=== PATIENT | male | born 1990 | race Caucasian/White ===

== ENCOUNTER 2018-08-31 17:29 | Emergency (ER) | payer OTHER ==
[~2018-08-31] VITALS: Ht 193 cm; Wt 86.2 kg
[2018-08-31 17:38] VITALS: BP 156/106
[2018-08-31] MEDS ORDERED: DOL10 PO (17:50)
--- NOTE | 2018-08-31 17:50 | NUR ---
PT BIB [place] [facility] S/P TO BE CLEARED FOR MRSA ON BL LOWER EXTREMITY - [place] GREATER ON THE RT. DENIES PAIN. TAKING METHADONE. NO BLEEDING NOTED. PAIN 0/10, BILAT SMALL WOUNDS NOTED ON BOTH LOWER LEG. PT DENIES N/V/D; AAOX4, PERRL, WITH EVEN AND STEADY GAIT; LUNGS CLEAR BL, BREATHING UNLABORED; HR EVEN AND REGULAR, BL PERIPHERAL PULSES PRESENT; BS ACTIVE X4, NO TENDERNESS TO PALPATION. PT DENIES ANY FEVER, CP, SOB, OR COUGH AT THIS TIME; PT STATES 0/10 PAIN AT THIS TIME; VSS; PATIENT POSITIONED FOR COMFORT; HOB ELEVATED; BEDRAILS UP X2; BED DOWN.
[2018-08-31] MEDS ORDERED: CLINDAMYCIN 600 MG/4 ML VIAL IM ONE (18:10)
[2018-08-31] MEDS ORDERED: SULFAMETH/TRIMETH DS 800/160MG 1 TAB PO ONE (18:10)
[2018-08-31 18:51] VITALS: BP 156/106
--- NOTE | 2018-08-31 18:51 | NUR ---
PATIENT BIB [facility] [employer]. PATIENT EXAMINED BY DR. THOMPSON. PATIENT MEDICALLY CLEARED AND RELEASED IN CUSTODY IN STABLE CONDITION. ORIGINAL PRE-BOOK FORM GIVEN TO OFFICER Abraham MATOS. PRESCRIBED WITH BACTRIM AND DOXYCYCLINE. MEDICATION EXPLAINED WITH ADVERSED REACTION AND INSTRUCTED TO FOLLOW UP WITH PMD.
== END 2018-08-31 18:58 ==
LOC: MED 17:29
DX: L01.02 Bockhart's impetigo (principal); Z79.891 Long term (current) use of opiate analgesic; Z86.14 Personal history of Methicillin resistant Staphylococcus aureus infection; Z86.19 Personal history of other infectious and parasitic diseases
CPT/HCPCS: 96372; 99283; J3490

== ENCOUNTER 2020-11-03 17:34 | Emergency (ER) | payer OTHER ==
[~2020-11-03] VITALS: Ht 193 cm; Wt 90.7 kg
[~2020-11-03 17:34] MED LIST: DOL10 PO
[2020-11-03 17:38] VITALS: BP 107/74
--- NOTE | 2020-11-03 17:39 | NUR ---
Patient to bed 9. RN evaluating the patient at bedside.
--- NOTE | 2020-11-03 17:49 | NUR ---
Dr. Araujo is evaluating the patient at bedside.
[2020-11-03] MEDS ORDERED: VANCOMYCIN 1,000 MG in DEXTROSE 5% 250 ML IV ONE (17:55)
[2020-11-03] MEDS ORDERED: PIPERACILLIN/TAZOBACTAM 3.375 GM in DEXTROSE 5% 50 ML IV ONE (17:55)
[2020-11-03] MEDS ORDERED: NACL 0.9% 2,500 ML IV ONE (17:55)
[2020-11-03] MEDS ORDERED: CLINDAMYCIN 900 MG in DEXTROSE 5% 100 ML IV ONE (17:55)
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
[2020-11-03] MEDS ORDERED: PIPERACILLIN/TAZOBACTAM 3.375 GM VIAL IV ONE ×2 (18:35→20:07)
[2020-11-03] MEDS ORDERED: MORPHINE SULFATE 4 MG/ML SYR IVP ONE (19:20)
[2020-11-03] MEDS ORDERED: ONDANSETRON 4 MG/2 ML VIAL IVP ONE (19:20)
[2020-11-03 19:38] LABS: BASOPHILS % (AUTO) 0.3 % (0.0-2.0); EOSINOPHILS # (AUTO) 0.1 K/uL (0-0.4); HEMOGLOBIN 11.4 g/dL (12.0-18.0); LYMPHOCYTES # (AUTO) 2.7 K/uL (2.0-11.5); LYMPHOCYTES % (AUTO) 18.4 % (20.5-51.1); MEAN CORPUSCULAR HEMOGLOBIN 28 pg (27-31); MEAN CORPUSCULAR HGB CONC 34 g/dL (33-37); MEAN CORPUSCULAR VOLUME 83.7 fL (80-94); MONOCYTES # (AUTO) 0.8 K/uL (0.8-1.0); MONOCYTES % (AUTO) 5.5 % (1.7-9.3); NEUTROPHILS # (AUTO) 10.9 K/uL (1.8-7.7); NEUTROPHILS % (AUTO) 74.8 % (42.2-75.2); PLATELET COUNT (AUTO) 243 K/uL (140-450); RED BLOOD CELL COUNT(AUTO) 4.07 MIL/uL (4.20-6.10); RED CELL DISTRIBUTION WIDTH 14.1 % (11.6-13.7); WHITE BLOOD COUNT (AUTO) 14.5 K/uL (4.8-10.8)
[2020-11-03 19:54] LABS: ALBUMIN 3.1 g/dL (3.4-5.0); ANION GAP 11.7 (8-16); CARBON DIOXIDE 27.8 mmol/L (21-32); CREATININE 0.7 mg/dL (0.6-1.3); POTASSIUM 3.5 mmol/L (3.5-5.1)
[2020-11-03 20:08] LABS: PROTHROMBIN TIME 10.8 secs (10.8-13.4)
--- NOTE | 2020-11-03 20:29 | NUR ---
[facility] ([facility])- [phone] REQUESTING UPDATE. WILL NOTIFY PRIMARY RN
--- NOTE | 2020-11-03 20:55 | NUR ---
PT TAKEN TO CT VIA W/C
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
[2020-11-03] MEDS ORDERED: cefTRIAXone 1,000 MG in LIDOCAINE MPF 1% 2.1 ML IM ONE (21:30)
[2020-11-03] MEDS ORDERED: cefTRIAXone 1,000 MG VIAL ONE (21:31)
[2020-11-03] MEDS ORDERED: LIDOCAINE MPF 1% 5 ML ONE (21:31)
[2020-11-03] MEDS ORDERED: SULF-59 PO (21:33)
[2020-11-03] MEDS ORDERED: AMOX-1000 PO (21:33)
[2020-11-03] MEDS ORDERED: ACET-2619 PO (21:34)
[2020-11-03 22:01] VITALS: BP 120/74
--- NOTE | 2020-11-03 22:01 | NUR ---
Patient does not wish to proceed with medical care recommended by MD SAID. Patient given information related to possible complications, up to and including , which could occur as a result of leaving hospital at this time. Patient verbalizes understanding of risks involved leaving against medical advice. Patient has REFUSED TO sign AMA form.
--- NOTE | 2020-11-04 20:23 | NUR ---
LATE ENTRY- 0.9% NS BOLUS DISCONTINUED AT 2200 AND ZOSYN IVPB DISCONTINUED AT 2039
== END 2020-11-04 00:56 | disposition left against medical advice (07) ==
LOC: MED 17:34
DX: L02.512 Cutaneous abscess of left hand (principal); M65.849 Other synovitis and tenosynovitis, unspecified hand; D72.829 Elevated white blood cell count, unspecified; D64.9 Anemia, unspecified; R79.82 Elevated C-reactive protein (CRP)
CPT/HCPCS: 36415; 73200; 80053; 83605; 83690; 85025; 85610; 85651; 85730; 86140; 87040; 96361; 96365; 96367; 96375; 99291; J0696; J2001; J2270; J2405; J2543; J7030; J7060; 99284

== ENCOUNTER 2022-01-16 20:46 | Emergency (ER) | payer OTHER ==
[~2022-01-16] VITALS: Ht 193 cm; Wt 90.7 kg
[~2022-01-16 20:46] MED LIST changes: +ACET-2619 PO; +AMOX-1000 PO; -DOL10 PO; +METH-1550 PO; +SULF-59 PO
[2022-01-16 20:53] VITALS: BP 133/84
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
--- NOTE | 2022-01-16 21:05 | NUR ---
ERMD ASSESSING PT
--- NOTE | 2022-01-16 21:26 | NUR ---
PATIENT [facility]. PATIENT EXAMINED BY DR. DONG. PATIENT MEDICALLY CLEARED AND RELEASED IN CUSTODY IN STABLE CONDITION. ORIGINAL PRE-BOOK FORM GIVEN TO OFFICER [place]IV[place].
== END 2022-01-16 21:25 ==
LOC: MED 20:46
DX: Z02.89 Encounter for other administrative examinations (principal); V49.88XA Car occupant (driver) (passenger) injured in other specified transport accidents, initial encounter; Y93.89 Activity, other specified; Y92.89 Other specified places as the place of occurrence of the external cause; Y99.8 Other external cause status
CPT/HCPCS: 99283

== ENCOUNTER 2022-03-13 01:50 | Observation (INO) | payer OTHER ==
[~2022-03-13] VITALS: Ht 188 cm; Wt 86.2 kg
[2022-03-13 01:58] VITALS: BP 110/60
--- NOTE | 2022-03-13 02:05 | NUR ---
TO LOBBY FOLLOWING TRIAGE. IS DROWSY, ADMITS TO DRUG ADDICTION AND HAS TAKEN FENTANYL AND XANAX
--- NOTE | 2022-03-13 04:47 | NUR ---
PT TAKEN TO BED 11
--- NOTE | 2022-03-13 05:00 | NUR ---
PT BIB WC C/O RLE SWELLING X4 DAYS, +DIFFICULTY AMBULATING. DENIES RECENT IMMOBILIZATION, SURGERIES, LONG DISTANCE TRAVEL. +HX OF IV DRUG USE.
--- NOTE | 2022-03-13 05:07 | NUR ---
ULTRASOUND AT BEDSIDE
[2022-03-13 05:48] LABS: BASOPHILS % (AUTO) 0.2 % (0.0-2.0); EOSINOPHILS % (AUTO) 0.1 % (0.0-4.0); HEMATOCRIT 35.3 % (36-52); HEMOGLOBIN 11.6 g/dL (12.0-18.0); LYMPHOCYTES # (AUTO) 1.6 K/uL (2.0-11.5); LYMPHOCYTES % (AUTO) 12.3 % (20.5-51.1); MEAN CORPUSCULAR HEMOGLOBIN 27 pg (27-31); MEAN CORPUSCULAR HGB CONC 33 g/dL (33-37); MONOCYTES # (AUTO) 0.7 K/uL (0.8-1.0); MONOCYTES % (AUTO) 5.7 % (1.7-9.3); NEUTROPHILS # (AUTO) 10.4 K/uL (1.8-7.7); NEUTROPHILS % (AUTO) 81.7 % (42.2-75.2); PLATELET COUNT (AUTO) 169 K/uL (140-450); RED BLOOD CELL COUNT(AUTO) 4.25 MIL/uL (4.20-6.10); RED CELL DISTRIBUTION WIDTH 14.7 % (11.6-13.7); WHITE BLOOD COUNT (AUTO) 12.7 K/uL (4.8-10.8)
[2022-03-13 05:52] LABS: ALBUMIN 2.5 g/dL (3.4-5.0); ANION GAP 9.9 (8-16); CARBON DIOXIDE 29.9 mmol/L (21-32); CREATININE 0.8 mg/dL (0.6-1.3); PROTHROMBIN TIME 10.5 secs (10.8-13.4)
[2022-03-13 06:00] LABS: POTASSIUM 2.8 mmol/L (3.5-5.1)
[2022-03-13 06:10] LABS: SALICYLATE < 2.8 mg/dL (2.8-20.0)
--- NOTE | 2022-03-13 06:15 | NUR ---
Patient appears to be resting comfortably in bed. VSS. Respirations even and unlabored.
[2022-03-13] MEDS ORDERED: POTASSIUM CHLORIDE 10 MEQ TABER PO ONE (06:30)
[2022-03-13] MEDS ORDERED: POTASSIUM CHL 30 MEQ/ D5-1/2NS 1,000 ML IV ONE (06:50)
[2022-03-13] MEDS ORDERED: KCL 20 MEQ/WATER INJ PREMIX 200 ML IV ONE (07:00)
--- NOTE | 2022-03-13 07:06 | NUR ---
COVID SWAB SENT TO LAB
--- NOTE | 2022-03-13 07:16 | NUR ---
REPORT GIVEN TO EDWARDO YEE
[2022-03-13] MEDS ORDERED: ceFAZolin 1,000 MG VIAL ONE (07:31)
[2022-03-13] MEDS ORDERED: MAGNESIUM OXIDE 400 MG TAB PO PRN (08:15)
[2022-03-13] MEDS ORDERED: HYDROcodone/APAP 5/325 MG 1 TAB TAB PO PRN (08:15)
[2022-03-13] MEDS ORDERED: ACETAMINOPHEN 325 MG TAB PO PRN (08:15)
[2022-03-13] MEDS ORDERED: MAG SULF 2000 MG/WATER PREMIX 50 ML IV PRN (08:15)
[2022-03-13] MEDS ORDERED: MORPHINE SULFATE 4 MG/ML SYR IVP PRN (08:15)
[2022-03-13] MEDS ORDERED: VANCOMYCIN PER PHARMACY MC PRN (08:15)
[2022-03-13] MEDS ORDERED: KCL 20 MEQ/WATER INJ PREMIX 200 ML IV PRN (08:15)
[2022-03-13] MEDS ORDERED: POTASSIUM CHLORIDE 10 MEQ TABER PO PRN (08:15)
[2022-03-13] MEDS ORDERED: ONDANSETRON 4 MG/2 ML VIAL IVP PRN (08:15)
[2022-03-13] MEDS ORDERED: DOCUSATE SODIUM 100 MG GELCAP PO SCH (09:00)
[2022-03-13] MEDS ORDERED: cefTRIAXone 1,000 MG VIAL ONE (09:06)
--- NOTE | 2022-03-13 10:47 | NUR ---
DR CARUSO AT BEDSIDE
[2022-03-13] MEDS: VANCOMYCIN 1,000 MG in DEXTROSE 5% 250 ML IV SCH ×2 (11:00→19:00)
--- NOTE | 2022-03-13 11:00 | NUR ---
Patient will be admitted to care of DR CARUSO. Admited to TELEMETRY. Will go to room 124A. Belongings list completed. Report to samir reardon.
--- NOTE | 2022-03-13 11:29 | NUR ---
RECEIVE REPORT FROM ER NURSE WHILE PATIENT REST IN BED ASKING FOR IV BENZODIAZEPINES. PATIENT 32 YR-OLD MALE WHO COME TO ER FOR R. LOWER EXTREMITY SWELL AND PAIN FOR DAYS, DIAGNOSIS CELLULITIS W/ HX OF IV DRUG ABUSE/POLYSUBSTANCE ABUSE INCLUDING BUT NOT LIMIT ETOH, TOBACCO USE. NKA, FULL CODE, RISK FOR FALL, ALERT X 4 O TEL MONITOR, USING ROOM AIR, ON REGULAR DIET. PIV AT LAC INFUSING POTASSIUM D/T POTASSIUM 2.8 IN [facility] 7 LAB RESULT. MRSA SPECIMEN COLLECTED. WILL CONTINUE TO MONITOR
[2022-03-13 12:00] VITALS: BP 103/43
[2022-03-13 16:00] VITALS: BP 105/69
[2022-03-13] MEDS ORDERED: ECOTRIN 81 MG TABEC PO SCH (17:32)
--- NOTE | 2022-03-13 19:35 | NUR ---
1900 IV VANCOMYCIN IS NOT IN MEDICATION CABIN; NURSE CONTACT DR. CARUSO REGARDING TO PATIENT SELF REPORT THAT HE IS ALLERGY TO VANCOMYCIN FEELING ITCHY AFTER HAVE IV VANCOMYCIN. RECEIVE MD ORDER TO D/C VANCOMYCIN AND CONTINUE ROCEPHIN. ENCORE ORDER TO PM SHIFT NURSE
--- NOTE | 2022-03-13 19:36 | NUR ---
RECEIVED REPORT FROM DAY SHIFT NURSE ALEKSEY. PATIENT AWAKE AOX4 WILL CONTINUE TO MONITOR PT.WELL RESTED ON ROOM AIR. NO SOB NOTED. BREATHING EVEN UNLABORED. NO COMPLAINTS OF PAIN. SAFETY MEASURES IN PLACE. CALL LIGHT WITHIN REACH. IV ACCESS ON THE LAC 20 GAUGE SALINE LOCK.
[2022-03-13 20:00] VITALS: BP 100/49
--- NOTE | 2022-03-13 21:06 | NUR ---
ADMINISTERED SCHEDULED MEDICATION PER MD ORDER.
--- NOTE | 2022-03-13 23:10 | NUR ---
PATIENT DISCHARGED AMA PAPERS SIGNED. DR RADER TITLE LAWYER FOR DR CARUSO MADE AWARE. Addendum: 03/14/22 at 0056 by Lashon Rivera RN RN PATIENT SIGNED AMA.
== END 2022-03-13 23:10 | disposition left against medical advice (07) ==
LOC: MED 01:50 → MTU 08:27 → INTOOBSV 08:27
PROVIDERS: ADMIT Internal Medicine; ATTEND Internal Medicine
DX: A41.9 Sepsis, unspecified organism (principal); Z20.822 Contact with and (suspected) exposure to COVID-19; L03.115 Cellulitis of right lower limb; D72.829 Elevated white blood cell count, unspecified; D64.9 Anemia, unspecified; E87.6 Hypokalemia; F19.10 Other psychoactive substance abuse, uncomplicated; F15.10 Other stimulant abuse, uncomplicated; Z53.29 Procedure and treatment not carried out because of patient's decision for other reasons; Z87.891 Personal history of nicotine dependence; Z79.899 Other long term (current) drug therapy
CPT/HCPCS: 36415; 71275; 80053; 82948; 83880; 84484; 85025; 85610; 85730; 87040; 87081; 87426; 93005; 93971; 96365; 96366; 96367; 96368; 96372; 97116; 97163; 99285; G0378; G0480; G0482; J0690; J0696; J1644; J3480; Q0092; Q0163; Q9967

== ENCOUNTER 2022-12-31 18:10 | Emergency (ER) | payer OTHER ==
[~2022-12-31] VITALS: Ht 182.9 cm; Wt 90.7 kg
[~2022-12-31 18:10] MED LIST changes: -AMOX-1000 PO; -METH-1550 PO; -SULF-59 PO
[2022-12-31 18:55] VITALS: BP 111/79; PULSE 111; RESP 20; TEMP 98.9; O2SAT 98
--- NOTE | 2022-12-31 18:55 | NUR ---
PT W/C ASSISTED TO BED 12
[2022-12-31] MEDS ORDERED: NACL 0.9% 1,000 ML IV ONE (19:05)
--- NOTE | 2022-12-31 19:30 | NUR ---
US at bedside.
--- NOTE | 2022-12-31 19:58 | NUR ---
XRAY AT BEDSIDE
--- NOTE | 2022-12-31 20:00 | NUR ---
Sulema massey in EDM - 12/31/22 at 2020 by [facility] at bedside.
[2022-12-31] MEDS ORDERED: cefTRIAXone 1,000 MG VIAL ONE (20:25)
[2022-12-31 21:15] LABS: BASOPHILS % (AUTO) 0.3 % (0.0-2.0); HEMATOCRIT 36.7 % (36-52); HEMOGLOBIN 12.7 g/dL (12.0-18.0); LYMPHOCYTES # (AUTO) 0.9 K/uL (2.0-11.5); MEAN CORPUSCULAR HEMOGLOBIN 30 pg (27-31); MEAN CORPUSCULAR HGB CONC 35 g/dL (33-37); MEAN CORPUSCULAR VOLUME 88.2 fL (80-94); MONOCYTES # (AUTO) 0.2 K/uL (0.8-1.0); MONOCYTES % (AUTO) 1.9 % (1.7-9.3); NEUTROPHILS # (AUTO) 11.8 K/uL (1.8-7.7); NEUTROPHILS % (AUTO) 90.8 % (42.2-75.2); PLATELET COUNT (AUTO) 161 K/uL (140-450); RED BLOOD CELL COUNT(AUTO) 4.16 MIL/uL (4.20-6.10); RED CELL DISTRIBUTION WIDTH 13.3 % (11.6-13.7); WHITE BLOOD COUNT (AUTO) 12.9 K/uL (4.8-10.8)
[2022-12-31 22:11] LABS: ALBUMIN 3.1 g/dL (3.4-5.0); ANION GAP 10.8 (8-16); CARBON DIOXIDE 31.3 mmol/L (21-32); POTASSIUM 3.1 mmol/L (3.5-5.1); TOTAL BILIRUBIN 1.3 mg/dL (0.0-1.0)
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
--- NOTE | 2022-12-31 23:05 | NUR ---
As per ERMD, patient may have oral intake. Patient given a cup of juice and a chicken sandwich.
[2022-12-31 23:07] LABS: APPEARANCE,URINE CLEAR (CLEAR); BILIRUBIN,URINE NEGATIVE (NEGATIVE); BLOOD, URINE NEGATIVE (NEGATIVE); COLOR,URINE YELLOW (YELLOW); LEUKOCYTE ESTERASE ,URINE NEGATIVE (NEGATIVE); NITRITE, URINE NEGATIVE (NEGATIVE); UGLUCOSE TRACE (NEGATIVE)
[2023-01-01 00:30] VITALS: TEMP 99.9
--- NOTE | 2023-01-01 00:30 | NUR ---
Patient asleep and comfortable in bed with side rails up and call light within reach. No complaints of pain or signs of acute distress at this time.
[2023-01-01] MEDS ORDERED: ONDANSETRON 4 MG/2 ML VIAL IVP PRN (01:45)
[2023-01-01] MEDS ORDERED: MAGNESIUM OXIDE 400 MG TAB PO PRN (01:45)
[2023-01-01] MEDS ORDERED: VANCOMYCIN PER PHARMACY MC PRN (01:45)
[2023-01-01] MEDS ORDERED: HYDROcodone/APAP 5/325 MG 1 TAB TAB PO PRN (01:45)
[2023-01-01] MEDS ORDERED: NACL 0.9% 1,000 ML IV SCH (01:45)
[2023-01-01] MEDS ORDERED: ACETAMINOPHEN 325 MG TAB PO PRN (01:45)
[2023-01-01] MEDS ORDERED: KCL 20 MEQ IN 100 mL PREMIX 200 ML IV PRN (01:45)
[2023-01-01] MEDS ORDERED: MORPHINE SULFATE 4 MG/ML SYR IVP PRN (01:45)
[2023-01-01] MEDS ORDERED: SULF-59 PO (01:48)
[2023-01-01] MEDS ORDERED: CEPH-588 PO (01:48)
--- NOTE | 2023-01-01 01:50 | NUR ---
Patient does not wish to proceed with medical care recommended by Dr. Burgos. Patient given information related to possible complications, up to and including , which could occur as a result of leaving hospital at this time. Patient verbalizes understanding of risks involved leaving against medical advice. Patient has signed AMA form. Addendum: 01/01/23 at 0229 by [facility] Courtney YEE informed admitting physician regarding patient's decision to leave AMA.
[2023-01-01 02:25] VITALS: BP 100/63; PULSE 96; RESP 12; O2SAT 94
[2023-01-01] MEDS ORDERED: VANCOMYCIN 1,000 MG in DEXTROSE 5% 250 ML IV SCH (03:00)
[2023-01-01] MEDS ORDERED: DOCUSATE SODIUM 100 MG GELCAP PO SCH (09:00)
== END 2023-01-01 01:50 | disposition left against medical advice (07) ==
LOC: MED 18:10
DX: L03.115 Cellulitis of right lower limb (principal); Z86.69 Personal history of other diseases of the nervous system and sense organs; Z79.2 Long term (current) use of antibiotics
CPT/HCPCS: 36415; 71045; 73130; 73590; 73610; 80053; 81003; 83605; 85025; 87040; 90471; 90715; 93971; 96361; 96365; 99285; J0696; J7030; Q0092